=== PATIENT | male | born 1975 | race Two or more races ===

== ENCOUNTER 2017-11-22 11:45 | Inpatient (IN) | payer OTHER ==
[~2017-11-22] VITALS: Ht 175.3 cm; Wt 133.8 kg
[2017-11-22] MEDS ORDERED: ENALAPRIL MALEA10 MG PO (16:07)
[2017-12-02] MEDS ORDERED: OXYC1TAB9 PO (12:12)
[2017-12-02] MEDS ORDERED: Intestinex CAP PO (12:12)
== END 2017-12-02 13:24 | disposition home or self-care (01) | DRG 331 ==
LOC: O/R 11-29 09:19 → SURH 11-29 09:45 → MEDI 11-29 20:19 → SURH 11-29 20:19
PROVIDERS: Surgery
PROC: 0DBP4ZZ Excision of Rectum, Percutaneous Endoscopic Approach (ICD-10-PCS; 2017-11-29)
PROC: 07TC4ZZ Resection of Pelvis Lymphatic, Percutaneous Endoscopic Approach (ICD-10-PCS; 2017-11-29)
PROC: 0DJD8ZZ Inspection of Lower Intestinal Tract, Via Natural or Artificial Opening Endoscopic (ICD-10-PCS; 2017-11-29)
PROC: 4A033R1 Measurement of Arterial Saturation, Peripheral, Percutaneous Approach (ICD-10-PCS; 2017-11-29)
PROC: 4A12X4Z Monitoring of Cardiac Electrical Activity, External Approach (ICD-10-PCS; 2017-11-29)
PROC: 0DTN4ZZ Resection of Sigmoid Colon, Percutaneous Endoscopic Approach (ICD-10-PCS; principal; 2017-11-29 09:45)
DX: C19 Malignant neoplasm of rectosigmoid junction (principal); R59.0 Localized enlarged lymph nodes; I11.9 Hypertensive heart disease without heart failure; E66.01 Morbid (severe) obesity due to excess calories; G47.33 Obstructive sleep apnea (adult) (pediatric)

== ENCOUNTER 2022-11-17 15:16 | Inpatient (IN) | payer OTHER ==
[~2022-11-17] VITALS: Ht 175.3 cm; Wt 113.4 kg
[~2022-11-17 15:16] MED LIST: ENALAPRIL MALEA10 MG PO; Intestinex CAP PO; OXYC1TAB9 PO
[2022-11-17] MEDS ORDERED: ALTACE5 MG (15:21)
[2022-11-17] MEDS ORDERED: CRESTOR10 MG (15:22)
--- NOTE | 2022-11-17 15:22 | NUR ---
SE RECIBE PACIENTE DE AMBULANCIA ALERTA Y ORIENTADO X3 QUIEN REFIERE PRESENTA MELENA HACE 2 FRY. PTE REFIERE PRESENTO UN EPISODIO DE MELENA HOY.SE MONITOREAN LOS SV Y SE DOCUMENTAN.
--- NOTE | 2022-11-17 18:15 | NUR ---
SE ORIENTA PTE SOBRE EL TRATAMIENTO ORDENADO POR LA DRA STOVER PTE ALERTA Y ORIENTADO POR 3 RN S.DOUG REALIZA MUESTRAS DE LABORATORIO Y ADMINISTRA MEDICAMENTOS ABHIJEET ORDENADO.
--- NOTE | 2022-11-17 23:52 | NUR ---
SE RECIBE PTE ALERTA Y ORIENTADO X3 EN PAT BAJA CON BARANDAS ELEVADAS POR SEGURIDAD. SE OBSERVA CON BUEN PATRON RESPIRATORIO, RECIBIENDO IV FLUIDS PATENTE. AREA DE VENOPUNCION SULAIMAN DE EDEMA Y ERITEMA. PEND A RE-EVALUACION MEDICA.
--- NOTE | 2022-11-18 07:09 | NUR ---
PTE ALERTA,ESTABLE Y ORIENTADO.SE EDUCA SOBRE EL TRATAMIENTO QUE RECIBIRA EN EL [facility]OS[facility]ITAL Y [facility] REFIERE ENTENDER
[2022-12-02] MEDS ORDERED: ALTACE5 MG PO (17:18)
[2022-12-02] MEDS ORDERED: CRESTOR10 MG PO (17:19)
[2022-12-02] MEDS ORDERED: Neurin-Sl Tablet Sl SL (17:19)
[2022-12-02] MEDS ORDERED: CARAFATE1 GM PO (17:19)
[2022-12-02] MEDS ORDERED: FOLIC ACID1 MG PO (17:19)
== END 2022-12-02 21:46 | disposition home or self-care (01) | DRG 393 ==
LOC: ER 15:16 → MEDI 11-18 13:45
PROVIDERS: ADMIT Internal Medicine; ATTEND Internal Medicine
PROC: BW21ZZZ Computerized Tomography (CT Scan) of Abdomen and Pelvis (ICD-10-PCS; 2022-11-17)
PROC: 3E0336Z Introduction of Nutritional Substance into Peripheral Vein, Percutaneous Approach (ICD-10-PCS; 2022-11-18)
PROC: 30233N1 Transfusion of Nonautologous Red Blood Cells into Peripheral Vein, Percutaneous Approach (ICD-10-PCS; 2022-11-19)
PROC: CD271ZZ Tomographic (Tomo) Nuclear Medicine Imaging of Gastrointestinal Tract using Technetium 99m (Tc-99m) (ICD-10-PCS; 2022-11-21)
PROC: 0DJ08ZZ Inspection of Upper Intestinal Tract, Via Natural or Artificial Opening Endoscopic (ICD-10-PCS; principal; 2022-11-22)
PROC: 0DJD8ZZ Inspection of Lower Intestinal Tract, Via Natural or Artificial Opening Endoscopic (ICD-10-PCS; 2022-11-22)
PROC: CD271ZZ Tomographic (Tomo) Nuclear Medicine Imaging of Gastrointestinal Tract using Technetium 99m (Tc-99m) (ICD-10-PCS; 2022-11-28)
PROC: 0DB68ZX Excision of Stomach, Via Natural or Artificial Opening Endoscopic, Diagnostic (ICD-10-PCS; 2022-11-29)
PROC: 0DJD8ZZ Inspection of Lower Intestinal Tract, Via Natural or Artificial Opening Endoscopic (ICD-10-PCS; 2022-11-30)
DX: K31.7 Polyp of stomach and duodenum (principal); K29.81 Duodenitis with bleeding; D62 Acute posthemorrhagic anemia; Z85.048 Personal history of other malignant neoplasm of rectum, rectosigmoid junction, and anus; G47.33 Obstructive sleep apnea (adult) (pediatric); I11.9 Hypertensive heart disease without heart failure; Z85.038 Personal history of other malignant neoplasm of large intestine; E66.01 Morbid (severe) obesity due to excess calories; Z20.822 Contact with and (suspected) exposure to COVID-19

== ENCOUNTER 2023-07-15 12:19 | Inpatient (IN) | payer OTHER ==
[~2023-07-15] VITALS: Ht 177.8 cm; Wt 108.0 kg
[~2023-07-15 12:19] MED LIST changes: +ALTACE5 MG; +ALTACE5 MG PO; +CARAFATE1 GM PO; +CRESTOR10 MG; +CRESTOR10 MG PO; +FOLIC ACID1 MG PO; +Neurin-Sl Tablet Sl SL
== END 2023-07-21 16:18 | disposition home or self-care (01) | DRG 378 ==
LOC: ER 12:19 → MEDI 19:07
PROVIDERS: General Practice; ADMIT Internal Medicine; ATTEND Internal Medicine
PROC: BW21YZZ Computerized Tomography (CT Scan) of Abdomen and Pelvis using Other Contrast (ICD-10-PCS; 2023-07-15)
PROC: 4A12X4Z Monitoring of Cardiac Electrical Activity, External Approach (ICD-10-PCS; 2023-07-15)
PROC: 30233N1 Transfusion of Nonautologous Red Blood Cells into Peripheral Vein, Percutaneous Approach (ICD-10-PCS; 2023-07-16)
PROC: 0DJ08ZZ Inspection of Upper Intestinal Tract, Via Natural or Artificial Opening Endoscopic (ICD-10-PCS; principal; 2023-07-17)
PROC: 0DJD8ZZ Inspection of Lower Intestinal Tract, Via Natural or Artificial Opening Endoscopic (ICD-10-PCS; 2023-07-18)
DX: K92.2 Gastrointestinal hemorrhage, unspecified (principal); D62 Acute posthemorrhagic anemia; I10 Essential (primary) hypertension; G47.33 Obstructive sleep apnea (adult) (pediatric); Z85.038 Personal history of other malignant neoplasm of large intestine